=== PATIENT | female | born 1945 | race Caucasian/White ===

== ENCOUNTER → 2021-04-19 13:12 | Outpatient (BNVA) | payer OTHER, SELFPAY | PROVIDERS: Visit Provider Physician Assistant Medical | DX: S60.221A Contusion of right hand, initial encounter (principal); S30.0XXA Contusion of lower back and pelvis, initial encounter; W01.0XXA Fall on same level from slipping, tripping and stumbling without subsequent striking against object, initial encounter; M25.561 Pain in right knee; M54.2 Cervicalgia | CPT/HCPCS: 73110; 73130; 73502; 99203 ==

== ENCOUNTER → 2021-04-22 08:08 | Outpatient (BNVA) | payer OTHER, SELFPAY | PROVIDERS: Visit Provider Internal Medicine | DX: R51.9 Headache, unspecified (principal); M54.2 Cervicalgia; M25.561 Pain in right knee; Z91.81 History of falling | CPT/HCPCS: 70450; 99214 ==

== ENCOUNTER → 2021-04-30 15:10 | Outpatient (BNVA) | payer OTHER, SELFPAY | PROVIDERS: Visit Provider Internal Medicine | DX: R51.9 Headache, unspecified (principal); M54.2 Cervicalgia; M25.561 Pain in right knee; Z91.81 History of falling | CPT/HCPCS: 99213 ==